=== PATIENT | female | born 1980 | race Caucasian/White ===

== ENCOUNTER 2018-10-08 18:36 | Emergency (ER) | payer OTHER ==
[~2018-10-08] VITALS: Ht 170.2 cm; Wt 158.8 kg
[2018-10-08 19:16] LABS: URINE BILIRUBIN NEGATIVE (Negative); URINE BLOOD TRACE (Negative); URINE CLARITY CLEAR; URINE COLOR YELLOW; URINE GLUCOSE-RANDOM* NEGATIVE (Negative); URINE KETONES NEGATIVE (Negative); URINE LEUKOCYTES-REFLEX NEGATIVE (Negative); URINE NITRITE-REFLEX NEGATIVE (Negative); URINE PROTEIN (DIPSTICK) NEGATIVE (Negative); URINE UROBILINOGEN 0.2 E.U./dl (0.2-1.0)
[2018-10-08 19:30] LABS: ABSOLUTE NEUTROPHILS 6.1 thou/uL (1.4-8.2); BASOPHILS 0.8 % (0.0-2.0); EOSINOPHILS 3.7 % (0.0-3.0); HEMATOCRIT 39.4 % (37.0-47.0); HEMOGLOBIN 13.4 gm/dL (12.0-15.0); LYMPHOCYTES 25.9 % (24.0-44.0); MCH 27.9 pg (26.0-34.0); MCV 81.9 fL (80.0-100.0); MONOCYTES 7.9 % (1.0-8.0); PLATELET COUNT 261 thou/uL (150-400); POLYS 61.7 % (36.0-66.0); WBC 9.9 thou/uL (4.0-11.0)
[2018-10-08 19:37] LABS: CALCIUM 9.4 mg/dL (8.5-10.1); POTASSIUM 3.8 mmol/L (3.5-5.1)
[2018-10-08 19:43] LABS: ALBUMIN 3.5 g/dL (3.4-5.0); TOTAL BILIRUBIN 0.3 mg/dL (<0.1-1.0); TOTAL PROTEIN 8.2 g/dL (6.4-8.2)
[2018-10-08] MEDS ORDERED: SYNTHROID50 MCG PO (20:03)
[2018-10-08] MEDS ORDERED: GLUCOPHAGE XR500 MG PO (20:03)
[2018-10-08] MEDS ORDERED: FLUTICASONE PRO16 GM NASAL (20:03)
[2018-10-08] MEDS ORDERED: CELEXA10 MG PO (20:03)
[2018-10-08] MEDS ORDERED: VENTOLIN HFA 1818 GM INH (20:04)
[2018-10-08] MEDS ORDERED: SYEDA 28 TABLE1 EACH PO (20:04)
[2018-10-08] MEDS ORDERED: XANAX 0.25 MG0.25 MG PO (20:04)
[2018-10-08 20:26] VITALS: BP 161/87
== END 2018-10-08 20:30 | disposition home or self-care (01) ==
LOC: ER 18:36
PROVIDERS: Emergency Medicine
DX: R10.84 Generalized abdominal pain (principal); J18.9 Pneumonia, unspecified organism; Z90.49 Acquired absence of other specified parts of digestive tract